=== PATIENT | male | born 1950 | race Caucasian/White ===

== ENCOUNTER 2020-11-18 09:38 | Emergency (ER) | payer MEDICARE, OTHER ==
[~2020-11-18] VITALS: Ht 172.7 cm; Wt 61.7 kg
[2020-11-18] MEDS ORDERED: ONDANSETRON 4 MG/2 ML (SDV) Z0FRAN IVP ONE (09:45)
[2020-11-18] MEDS ORDERED: LACTATED RINGERS 1,000 ML IV STA (09:45)
[2020-11-18] MEDS ORDERED: KETOROLAC 30 MG/ML VIAL IVP STA (09:45)
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
[2020-11-18 10:04] LABS: HEMATOCRIT 45 % (40-54); HEMOGLOBIN 15.7 g/dL (13.3-17.7); LYMPHOCYTES % (AUTO) 23 % (12-44); MEAN CORPUSCULAR HEMOGLOBIN 32 pg (25-34); MEAN CORPUSCULAR HGB CONC 35 g/dL (32-36); MEAN CORPUSCULAR VOLUME 91 fL (80-99); MEAN PLATELET VOLUME 10.3 fL (9.0-12.2); MONOCYTES % (AUTO) 8 % (0-12); NEUTROPHILS % (AUTO) 66 % (42-75); PLATELET COUNT 246 10^3/uL (130-400); WHITE BLOOD COUNT 6.7 10^3/uL (4.3-11.0)
[2020-11-18 10:05] LABS: BASOPHILS % (AUTO) 1 % (0-10); EOSINOPHILS # (AUTO) 0.2 10^3/uL (0.0-0.3); EOSINOPHILS % (AUTO) 3 % (0-10); LYMPHOCYTES # (AUTO) 1.5 X 10^3 (1.0-4.0); MONOCYTES # (AUTO) 0.5 X 10^3 (0.0-1.0); NEUTROPHILS # (AUTO) 4.4 X 10^3 (1.8-7.8)
[2020-11-18 10:25] LABS: ALANINE AMINOTRANSFERASE 13 U/L (0-55); ALKALINE PHOSPHATASE 55 U/L (40-136); BILIRUBIN,TOTAL 0.9 MG/DL (0.1-1.0); BUN/CREATININE RATIO 21; CALCIUM 9.8 MG/DL (8.5-10.1); CARBON DIOXIDE 21 MMOL/L (21-32); CHLORIDE 102 MMOL/L (98-107); CREATININE SERUM 1.23 MG/DL (0.60-1.30); GFR ESTIMATED 58; GLUCOSE 166 MG/DL (70-105); POTASSIUM 3.9 MMOL/L (3.6-5.0); SODIUM 139 MMOL/L (135-145)
[2020-11-18 10:26] LABS: ALBUMIN 4.9 GM/DL (3.2-4.5); TOTAL PROTEIN 7.8 GM/DL (6.4-8.2)
--- NOTE | 2020-11-18 10:29 | Diagnostic Imaging Report ---
INDICATION: Back pain, degenerative disc disease COMPARISON: None FINDINGS: 3 views of the lumbar column demonstrate grade 1 anterolisthesis of L5 on S1. Facet joint arthropathy. Otherwise, alignment is stable. There is no compression fracture. Moderate degenerative changes are seen throughout. There is no osseous lesion. IMPRESSION: Moderate diffuse degenerative disc disease and facet joint arthropathy. Dictated by: Dictated on workstation # [id number]
--- NOTE | 2020-11-18 11:05 | Diagnostic Imaging Report ---
EXAM: Limited soft tissue ultrasound EXAM DATE: 11/18/2020 COMPARISON: None. HISTORY: Right inguinal pain. TECHNIQUE: Multiple targeted sonographic images of the right groin were obtained. FINDINGS: Within the right groin in the region of concern, there is no focal mass, fluid collection, or suspicious lymphadenopathy. No findings to suggest a hernia. IMPRESSION: No focal abnormality or hernia seen within the region of concern in the right groin. Dictated by: Dictated on workstation # [id number]
--- NOTE | 2020-11-18 11:12 | Diagnostic Imaging Report ---
EXAM: Pelvic radiograph EXAM DATE: 11/18/2020 COMPARISON: None. HISTORY: Pelvic pain. TECHNIQUE: 3 views of the pelvis. FINDINGS: There is no acute fracture, dislocation, or destructive osseous process. There are mild degenerative changes of both hips as well as within the lumbar spine and sacroiliac joints. Soft tissues are normal. IMPRESSION: Degenerative changes within the pelvis without acute osseous abnormality. Dictated by: Dictated on workstation # [id number]
[2020-11-18 11:22] VITALS: BP 142/68
== END 2020-11-18 11:23 | disposition home or self-care (01) ==
LOC: ER FS 09:39
DX: S39.012A Strain of muscle, fascia and tendon of lower back, initial encounter (principal); V47.5XXA Car driver injured in collision with fixed or stationary object in traffic accident, initial encounter
CPT/HCPCS: 36415; 72100; 72190; 76856; 80053; 85025; 86141